=== PATIENT | female | born 1975 | race Caucasian/White ===

== ENCOUNTER 2017-11-04 22:30 | Emergency (ER) | payer MEDICAID ==
[~2017-11-04] VITALS: Ht 162.6 cm; Wt 71.2 kg
[2017-11-04 23:24] VITALS: BP_SYST 150
--- NOTE | 2017-11-04 23:31 | NUR ---
Patient triaged and placed in waiting room. VSS and patient appears in no acute distress at this time. Accompanied by SELF, awaiting available bed, and MD notified of need for MSE.
--- NOTE | 2017-11-05 00:15 | NUR ---
Patient to ER bed 07 to gown for evaluation. Side rails up. Report given to FABI Bingham
--- NOTE | 2017-11-05 00:17 | NUR ---
Patient complaining of headache and sinus pressure worsening today. Patient also complains lower back pain and body aches. Patient also reports having 7 sinus infections over the last year finishing just finished 21 days of antibiotics with no relief. Pain 8/10. Nasal congestion noted. No other complaints/injuries per patient or as noted. Will continue to monitor
--- NOTE | 2017-11-05 00:18 | NUR ---
ABHI Vizcarra at bedside examining patient.
[2017-11-05 00:49] LABS: BASOPHILS # (AUTO) 0.1 K/uL (0.0-0.2); BASOPHILS % (AUTO) 0.9 % (0.0-2.0); EOSINOPHILS # (AUTO) 0.2 K/uL (0.0-0.4); EOSINOPHILS % (AUTO) 1.7 % (0.0-4.0); HEMATOCRIT 43.6 % (36-48); HEMOGLOBIN 13.9 g/dL (12.0-16.0); LYMPHOCYTES # (AUTO) 4.1 K/uL (1.0-5.5); LYMPHOCYTES % (AUTO) 28.3 % (20.5-51.5); MEAN CORPUSCULAR HEMOGLOBIN 29 pg (27-31); MEAN CORPUSCULAR HGB CONC 32 % (32-36); MEAN CORPUSCULAR VOLUME 91 fL (79.0-98.0); MONOCYTES # (AUTO) 1.1 K/uL (0.0-1.0); MONOCYTES % (AUTO) 7.7 % (1.7-9.3); NEUTROPHILS % (AUTO) 61.4 % (40.0-70.0); PLATELET COUNT (AUTO) 424 K/uL (130-430); RED CELL DISTRIBUTION WIDTH 12.4 % (9.0-15.0); WHITE BLOOD COUNT (AUTO) 14.5 K/uL (4.8-10.8)
[2017-11-05 01:00] LABS: CALCIUM 8.4 mg/dL (8.4-11.0); CREATININE 0.79 mg/dL (0.55-1.30); POTASSIUM 3.3 mmol/L (3.5-5.1)
[2017-11-05] MEDS ORDERED: LORATADINE 10 MG TABLET PO ONE (01:00)
[2017-11-05] MEDS ORDERED: NACL 0.9% 1,000 ML IV ONE (01:00)
[2017-11-05] MEDS ORDERED: KETOROLAC TROMETHAMINE 30 MG VIAL IVP ONE (01:00)
[2017-11-05 01:06] LABS: ALBUMIN 3.4 g/dL (3.4-4.8); TOTAL BILIRUBIN 0.5 mg/dL (0.0-1.0)
[2017-11-05 01:27] LABS: BILIRUBIN,URINE NEGATIVE (NEGATIVE); CLARITY/URINE CLEAR (CLEAR); COLOR,URINE YELLOW (YELLOW); GLUCOSE,URINE NEGATIVE (NEGATIVE); KETONES,URINE NEGATIVE (NEGATIVE); LEUKOCYTE ESTERASE ,URINE NEGATIVE (NEGATIVE); NITRITE, URINE NEGATIVE (NEGATIVE); PROTEIN URINE NEGATIVE (NEGATIVE); UROBILINOGEN,URINE 0.2 (0.2-1.0)
[2017-11-05 01:44] LABS: BLOOD, URINE TRACE (NEGATIVE)
--- NOTE | 2017-11-05 01:51 | NUR ---
Dr. Hale at bedside for re-examination
[2017-11-05 01:55] LABS: BACTERIA,URINE FEW /HPF (None Seen); WBC,URINE 0-3 /HPF (0-3)
[2017-11-05 02:10] VITALS: BP_SYST 150
--- NOTE | 2017-11-05 02:10 | NUR ---
Patient given written and verbal discharge instructions and verbalizes understanding. ER MD Dr. Hale discussed with patient the results and treatment provided. Patient in stable condition. ID arm band removed. IV catheter removed intact and dressing applied, no active bleeding. Rx of Flagyl and Levaquin given. Patient educated on pain management and to follow up with PMD within 2-3 days. Pain Scale 3/10. Opportunity for questions provided and answered. Medication side effect fact sheet provided.
== END 2017-11-05 02:10 | disposition home or self-care (01) ==
LOC: SED 22:30
DX: N83.202 Unspecified ovarian cyst, left side (principal); J32.9 Chronic sinusitis, unspecified; E87.6 Hypokalemia; R03.0 Elevated blood-pressure reading, without diagnosis of hypertension; Z88.1 Allergy status to other antibiotic agents; Z88.2 Allergy status to sulfonamides; Z88.8 Allergy status to other drugs, medicaments and biological substances
CPT/HCPCS: 36415; 70450; 74176; 80053; 81000; 85025; 96374; 99285; J1885; J7030 ×2

== ENCOUNTER 2020-06-22 12:50 | Emergency (ER) | payer MEDICAID ==
[~2020-06-22] VITALS: Ht 162.6 cm; Wt 70.3 kg
[2020-06-22 13:04] VITALS: BP_SYST 141
--- NOTE | 2020-06-22 13:04 | NUR ---
Placed in room 8 . Placed on polymer materials consultant, blood pressure machine and pulse oximeter. To gown for exam. Side rails up.
--- NOTE | 2020-06-22 13:07 | NUR ---
ER DR. MEDINA AT THE BEDSIDE EXAMINING PT
--- NOTE | 2020-06-22 13:10 | NUR ---
PT CAME IN FROM HOME C/O LEFT LOWER BACK AND FLANK PAIN 09/22 WITH PAINFUL AND DIFFICULT URINATION. STATES THE PAIN STARTED MONDAY AGAIN AFTER INITIALLY STARTING 1 MONTH AGO WHEN SHE WAS TREATED FOR A UTI. STATES SHE HAS A HX OF KIDNEY STONES, GALLSTONES AND OVARIAN CYSTS. DENIES TAKING ANYTHING FOR PAIN AT HOME. PT IS AMBULATORY, AAOX4, V/S STABLE
[2020-06-22] MEDS ORDERED: MORPHINE 4 MG INJ. 4 MG/ML VIAL IVP ONE (13:15)
[2020-06-22] MEDS ORDERED: KETOROLAC TROMETHAMINE 30 MG VIAL IVP ONE (13:15)
[2020-06-22] MEDS ORDERED: NACL 0.9% 1,000 ML IV ONE ×2 (13:15)
--- NOTE | 2020-06-22 13:15 | NUR ---
PT ABLE TO AMBULATE TO BATHROOM, VOIDED SMALL AMOUNT DARK YELLOW URINE, SPECIMEN SENT TO LAB
--- NOTE | 2020-06-22 13:20 | NUR ---
Patient transported to radiology via WC, accompanied by STAFF.
--- NOTE | 2020-06-22 13:30 | NUR ---
# 20 gauge angiocath placed to RAC. Use of asceptic technique. Opsite placed over site. Blood return noted. Blood for lab drawn from site. Flushed with 10 cc of normal saline. No evidence of infiltration noted. Patient tolerated well.
[2020-06-22 13:58] LABS: BASOPHILS % (AUTO) 1.1 % (0.0-2.0); EOSINOPHILS # (AUTO) 0.1 K/uL (0.0-0.4); HEMOGLOBIN 13.3 g/dL (12.0-16.0); LYMPHOCYTES # (AUTO) 1.3 K/uL (1.0-5.5); LYMPHOCYTES % (AUTO) 28.6 % (20.5-51.5); MEAN CORPUSCULAR HEMOGLOBIN 30 pg (27-31); MEAN CORPUSCULAR HGB CONC 33 % (32-36); MEAN CORPUSCULAR VOLUME 90 fL (79.0-98.0); MONOCYTES # (AUTO) 0.7 K/uL (0.0-1.0); MONOCYTES % (AUTO) 14.4 % (1.7-9.3); NEUTROPHILS # (AUTO) 2.4 K/uL (1.8-7.7); NEUTROPHILS % (AUTO) 52.9 % (40.0-70.0); PLATELET COUNT (AUTO) 285 K/uL (130-430); RED BLOOD CELL COUNT(AUTO) 4.43 MIL/uL (4.2-6.2); RED CELL DISTRIBUTION WIDTH 12.3 % (9.0-15.0); WHITE BLOOD COUNT (AUTO) 4.6 K/uL (4.8-10.8)
[2020-06-22 14:00] LABS: BILIRUBIN,URINE NEGATIVE (NEGATIVE); BLOOD, URINE NEGATIVE (NEGATIVE); CLARITY/URINE SL CLOUDY (CLEAR); COLOR,URINE YELLOW (YELLOW); GLUCOSE,URINE NEGATIVE (NEGATIVE); KETONES,URINE TRACE (NEGATIVE); LEUKOCYTE ESTERASE ,URINE NEGATIVE (NEGATIVE); NITRITE, URINE NEGATIVE (NEGATIVE); PROTEIN URINE NEGATIVE (NEGATIVE); UROBILINOGEN,URINE 0.2 (0.2-1.0)
[2020-06-22 14:08] LABS: CALCIUM 8.2 mg/dL (8.4-11.0); CREATININE 0.91 mg/dL (0.55-1.30); POTASSIUM 3.3 mmol/L (3.5-5.1)
[2020-06-22 14:14] LABS: ALBUMIN 3.4 g/dL (3.4-4.8); TOTAL BILIRUBIN 0.4 mg/dL (0.0-1.0)
--- NOTE | 2020-06-22 14:49 | NUR ---
PT RESTING IN BED, ABLE TO AMBULATE TO RESTROOM, DENIES PAIN WITH URINATION NOW
[2020-06-22] MEDS ORDERED: IBUP-1969 PO (15:00)
[2020-06-22] MEDS ORDERED: HYDR-3917 PO (15:00)
[2020-06-22 15:04] LABS: AMYLASE 62 U/L (0-100); LIPASE 101 U/L (73-393)
[2020-06-22 15:26] LABS: BACTERIA,URINE None Seen /HPF (None Seen); RBC,URINE NONE SEEN /HPF (0-3); WBC,URINE NONE SEEN /HPF (0-3)
[2020-06-22 15:27] LABS: TRICHOMONAS,URINE None Seen /HPF (None Seen); YEAST,URINE None Seen /HPF (None Seen)
[2020-06-22 15:31] VITALS: BP_SYST 137
--- NOTE | 2020-06-22 15:33 | NUR ---
Patient given written and verbal discharge instructions and verbalizes understanding. ER MD discussed with patient the results and treatment provided. Patient in stable condition. ID arm band removed. IV catheter removed intact and dressing applied, no active bleeding. Rx of IBUPROFEN AND NORCO given. Patient educated on pain management and to follow up with PMD. Pain Scale 2/10 LEFT FLANK PAIN. Opportunity for questions provided and answered. Medication side effect fact sheet provided.
== END 2020-06-22 15:33 | disposition home or self-care (01) ==
LOC: SED 12:50
DX: R10.9 Unspecified abdominal pain (principal); Z88.1 Allergy status to other antibiotic agents; Z79.899 Other long term (current) drug therapy; Z87.442 Personal history of urinary calculi
CPT/HCPCS: 36415; 74176; 76376; 80053; 81000; 82150; 83690; 85025; 96361; 96374; 96375; 99284; J1885; J2270; J7030

== ENCOUNTER 2021-04-26 11:34 | Emergency (ER) | payer MEDICAID ==
[~2021-04-26] VITALS: Ht 162.6 cm; Wt 67.1 kg
[~2021-04-26 11:34] MED LIST: HYDR-3917 PO; IBUP-1969 PO
[2021-04-26 11:38] VITALS: BP_SYST 123
--- NOTE | 2021-04-26 11:45 | NUR ---
Patient to ER bed 6 for evaluation. Side rails up. Assumed Care. Addendum: 04/26/21 at 1151 by ALEJANDRA bed 4
--- NOTE | 2021-04-26 11:48 | NUR ---
pt [place] yesterday, used her left arm/wrist/hand to break fall, pt is exp pain 09/22 on left wrist, took 800 motrin this am.
--- NOTE | 2021-04-26 11:59 | NUR ---
ER at bedside examining patient.
--- NOTE | 2021-04-26 12:05 | NUR ---
X-Ray being done at bedside.
[2021-04-26] MEDS ORDERED: KETOROLAC TROMETHAMINE 60 MG/2 ML VIAL IM ONE (12:30)
[2021-04-26] MEDS ORDERED: HYDR-3917 PO (12:42)
[2021-04-26] MEDS ORDERED: IBUP-1969 PO (12:42)
[2021-04-26 13:15] VITALS: BP_SYST 132
--- NOTE | 2021-04-26 13:15 | NUR ---
Patient given written and verbal discharge instructions and verbalizes understanding. ER Dr. Green discussed with patient the results and treatment provided. Patient in stable condition. ID arm band removed. Rx of [place] and Motrin given. Patient educated on pain management and to follow up with PMD. Pain Scale 4. Opportunity for questions provided and answered. Medication side effect fact sheet provided.
== END 2021-04-26 13:15 | disposition home or self-care (01) ==
LOC: SED 11:34
DX: S63.502A Unspecified sprain of left wrist, initial encounter (principal); Z88.8 Allergy status to other drugs, medicaments and biological substances; Z79.899 Other long term (current) drug therapy; Z87.442 Personal history of urinary calculi; W18.39XA Other fall on same level, initial encounter; Y93.89 Activity, other specified; Y92.89 Other specified places as the place of occurrence of the external cause; Y99.8 Other external cause status
CPT/HCPCS: 73110; 96372; 99283; J1885

== ENCOUNTER 2022-02-27 18:03 | Emergency (ER) | payer MEDICAID ==
[~2022-02-27] VITALS: Ht 167.6 cm; Wt 65.8 kg
[2022-02-27 18:07] VITALS: BP_SYST 151
--- NOTE | 2022-02-27 18:15 | NUR ---
PT WAS PUT IN ROOM 7
[2022-02-27] MEDS ORDERED: ONDANSETRON HCL 4 MG/2 ML VIAL IVP ONE (18:30)
[2022-02-27] MEDS ORDERED: NACL 0.9% 1,000 ML IV ONE (18:30)
[2022-02-27] MEDS ORDERED: MORPHINE 4 MG INJ. 4 MG/ML VIAL IVP ONE (18:30)
[2022-02-27] MEDS ORDERED: KETOROLAC TROMETHAMINE 30 MG VIAL IVP ONE (18:30)
[2022-02-27 18:37] LABS: BILIRUBIN,URINE NEGATIVE (NEGATIVE); BLOOD, URINE NEGATIVE (NEGATIVE); CLARITY/URINE CLEAR (CLEAR); COLOR,URINE YELLOW (YELLOW); GLUCOSE,URINE NEGATIVE (NEGATIVE); KETONES,URINE NEGATIVE (NEGATIVE); LEUKOCYTE ESTERASE ,URINE NEGATIVE (NEGATIVE); NITRITE, URINE NEGATIVE (NEGATIVE); PROTEIN URINE NEGATIVE (NEGATIVE); UROBILINOGEN,URINE 0.2 (0.2-1.0)
[2022-02-27 19:15] LABS: BASOPHILS # (AUTO) 0.1 K/uL (0.0-0.2); BASOPHILS % (AUTO) 0.8 % (0.0-2.0); EOSINOPHILS # (AUTO) 0.1 K/uL (0.0-0.4); EOSINOPHILS % (AUTO) 1.4 % (0.0-4.0); HEMATOCRIT 38.1 % (36-48); HEMOGLOBIN 12.6 g/dL (12.0-16.0); LYMPHOCYTES # (AUTO) 2.7 K/uL (1.0-5.5); LYMPHOCYTES % (AUTO) 29.1 % (20.5-51.5); MEAN CORPUSCULAR HEMOGLOBIN 30 pg (27-31); MEAN CORPUSCULAR HGB CONC 33 % (32-36); MEAN CORPUSCULAR VOLUME 89 fL (79.0-98.0); MONOCYTES # (AUTO) 0.7 K/uL (0.0-1.0); MONOCYTES % (AUTO) 7.5 % (1.7-9.3); NEUTROPHILS # (AUTO) 5.6 K/uL (1.8-7.7); NEUTROPHILS % (AUTO) 61.2 % (40.0-70.0); PLATELET COUNT (AUTO) 280 K/uL (130-430); RED BLOOD CELL COUNT(AUTO) 4.27 MIL/uL (4.2-6.2); RED CELL DISTRIBUTION WIDTH 13.4 % (9.0-15.0); WHITE BLOOD COUNT (AUTO) 9.2 K/uL (4.8-10.8)
[2022-02-27 19:22] LABS: CALCIUM 8.1 mg/dL (8.4-11.0); CREATININE 0.59 mg/dL (0.55-1.30)
[2022-02-27 19:28] LABS: ALBUMIN 3.1 g/dL (3.4-4.8); TOTAL BILIRUBIN 0.7 mg/dL (0.0-1.0)
--- NOTE | 2022-02-27 19:30 | NUR ---
Received report from CHRISTINE Ashley; assuming care of patient at this time.
--- NOTE | 2022-02-27 19:30 | NUR ---
# 20 gauge angiocath placed to right AC. Use of asceptic technique. Opsite placed over site. Blood return noted. Flushed with 10 cc of normal saline. No evidence of infiltration noted. Patient tolerated well.
--- NOTE | 2022-02-27 19:40 | NUR ---
Patient presents to ED from home with c/o lower back pain x 5 days worse today. Patient reports pain 10/10. Patient A/Ox4, VSS, ambulatory, resp even and unlabored. Patient reports history of hysterectomy and ovarian cysts. Nad noted at this time. ER MD Kendall made aware.
--- NOTE | 2022-02-27 20:33 | NUR ---
ABIH Kendall at bedside.
[2022-02-27] MEDS ORDERED: IBUP-1971 PO (20:41)
[2022-02-27] MEDS ORDERED: SOM350 PO (20:41)
[2022-02-27 21:00] VITALS: BP_SYST 150
--- NOTE | 2022-02-27 21:00 | NUR ---
Patient given written and verbal discharge instructions and verbalizes understanding. ER MD discussed with patient the results and treatment provided. Patient in stable condition. ID arm band removed. IV catheter removed intact and dressing applied, no active bleeding. Rx of Ibuprofen and Soma given. Patient educated on pain management and to follow up with PMD. Pain Scale 0/10. Opportunity for questions provided and answered. Medication side effect fact sheet provided. Patient A/Ox4, VSS, ambulatory, resp even and unlabored. Nad noted at this time.
== END 2022-02-27 21:00 | disposition home or self-care (01) ==
LOC: SED 18:03
DX: S39.012A Strain of muscle, fascia and tendon of lower back, initial encounter (principal); Z88.1 Allergy status to other antibiotic agents; Z88.2 Allergy status to sulfonamides; Z79.899 Other long term (current) drug therapy; X58.XXXA Exposure to other specified factors, initial encounter; Y93.89 Activity, other specified; Y92.89 Other specified places as the place of occurrence of the external cause; Y99.8 Other external cause status
CPT/HCPCS: 99285; 74176; 96374; 96375; 96361; 80053; 83690; 85025; 36415; 76376; 81003; J1885; J2405; J2270; J7030